=== PATIENT | male | born 1990 ===

== ENCOUNTER 2017-12-30 09:19 | Emergency (ER) | payer OTHER ==
[2017-12-30 10:00] VITALS: BP 129/72
--- NOTE | 2017-12-30 10:13 | UC ---
HPI Febrile Illness - HPI Summary HPI Summary: 27 year old male with fever. Onset 6 days ago off/on body aches and fever, cough . Feels no improvement over the week. Has had some ear pressure as well. [ End ] - History of Current Complaint Chief Complaint: UCRespiratory Time Seen by Provider: 12/30/17 10:10 Hx Obtained From: Patient Timing: Constant Pain Intensity: 6 - Allergy/Home Medications Allergies/Adverse Reactions: Allergies Allergy/AdvReac Type Severity Reaction Status Date / Time No Known Allergies Allergy Verified 12/30/17 10:00 Home Medications: Home Medications Dextromethorphn/Acetaminoph/Cp [Vicks Nyquil Cold & Flu Liquid] 354 ml PO BEDTIME PRN 12/30/17 [History Confirmed 12/30/17] Dm/PE/Acetaminophen/Doxylamine [Vicks Dayquil/Nyquil Cold] 1 mis PO Q6H PRN 04/11 [History Confirmed 12/30/17] Ibuprofen TAB* [Motrin TAB* 600 MG] 600 mg PO Q6H PRN 12/30/17 [History Confirmed 12/30/17] PMH/Surg Hx/FS Hx/Imm Hx Previously Healthy: Yes - Surgical History Surgical History: None - Family History Known Family History: Positive: None - Social History Occupation: Employed Full-time Lives: With Family Alcohol Use: Occasionally Substance Use Type: None Smoking Status (MU): Never Smoked Tobacco Review of Systems Constitutional: Fever, Chills, Fatigue ENT: Ear Ache, Nasal Discharge, Sinus Congestion, Sinus Pain/Tenderness Respiratory: Cough Musculoskeletal: Myalgia Is Patient Immunocompromised?: No All Other Systems Reviewed And Are Negative: Yes Physical Exam Triage Information Reviewed: Yes Appearance: Well-Appearing, No Pain Distress, Well-Nourished Vital Signs: Initial Vital Signs Temp 100.8 F 12/30/17 09:52 Pulse 110 12/30/17 09:52 Resp 24 12/30/17 09:52 BP 129/72 12/30/17 09:52 Pulse Ox 97 12/30/17 09:52 Vital Signs Reviewed: Yes Eye Exam: Normal ENT Exam: Normal ENT: Positive: Nasal congestion, Nasal drainage Dental Exam: Normal Neck exam: Normal Neck: Positive: 1 Respiratory Exam: Normal Cardiovascular Exam: Normal Abdominal Exam: Normal Musculoskeletal Exam: Normal Neurological Exam: Normal Psychological Exam: Normal Skin Exam: Normal Course/Dx - Course Course Of Treatment: Supportive care for a 3-4 days and if sx worsen or persist then start antibiotics. He is aware of plan / agrees and aware of SE. To go to [place] next week -- start flonase. if develops n/v then use zofran - Febrile Illness Differential Diagnoses: Fever of Unknown Origin, Pneumonia, Viremia - Diagnoses Clinic Provider Diagnoses: URI Discharge - Sign-Out/Discharge Documenting (check all that apply): Discharge - Discharge Plan Condition: Good Disposition: HOME Prescriptions: Amoxicillin PO (*) [Amoxicillin 500 MG CAP*] 500 mg PO Q12H 10 Days #20 cap Ondansetron ODT TAB* [Zofran 4 MG Odt TAB*] 4 mg PO Q6H PRN #20 tab.odt PRN Reason: Nausea Patient Education Materials: Upper Respiratory Infection (ED) Referrals: Danis Matthew [Primary Care Provider] - 4 Days - Billing Disposition and Condition Condition: GOOD Disposition: HOME
--- NOTE | 2017-12-30 10:47 | RAD ---
INDICATION: Cough and shortness of breath. COMPARISON: There are no prior studies available for comparison. TECHNIQUE: Dual-energy PA and lateral views of the chest were obtained. FINDINGS: The heart is within normal limits in size. Mediastinal and hilar contours appear within normal limits. The lungs are clear. No pleural effusion is present. IMPRESSION: NO EVIDENCE FOR ACTIVE CARDIOPULMONARY DISEASE.
== END 2017-12-30 11:03 | disposition home or self-care (01) ==
LOC: UCCORT 09:19
DX: J06.9 Acute upper respiratory infection, unspecified (principal)
CPT/HCPCS: 71046; 99202; G0463